=== PATIENT | female | born 1995 ===

== ENCOUNTER 2024-09-02 05:09 | Day surgery (SDC) | payer OTHER ==
[2024-08-25 09:07] VITALS: BP 101/68
[2024-08-25 09:18] LABS: HEMATOCRIT 32.7 % (36.0-45.00); MEAN CELL VOLUME 71.5 fL (80.00-100.00); MEAN CORPUSCULAR HEMOGLOBIN 22.9 pg (27.00-32.0); PLATELET COUNT 311 K/uL (150-450); RED BLOOD COUNT 4.57 M/uL (4.00-6.00); RED CELL DISTRIBUTION WIDTH 16.7 % (11.5-14.5)
[2024-08-25 09:19] LABS: HEMOGLOBIN 10.5 g/dL (12.0-15.00); URINE APPEARANCE Clear; URINE BILIRRUBIN Negative (NEGATIVE); URINE BLOOD Negative; URINE COLOR Yellow; URINE GLUCOSE Negative (NEGATIVE); URINE KETONE Negative (NEGATIVE); URINE LEUKOCYTE Negative; URINE NITRATE Negative; URINE PROTEIN Negative (NEGATIVE); URINE UROBILINOGEN 0.2 E.U./dl
[2024-08-25 09:24] LABS: URINE RBC 6.9 uL (0.0-20.8); URINE WBC 3.3 uL (0.0-23.2)
[2024-08-25 09:39] LABS: URINE CAST 0.29 uL (0.0-1.40)
[2024-08-25 09:41] LABS: INR 1.02; PARTIAL THROMBOPLASTIN TIME 28.2 SECONDS (22.0-34.0); PROTHROMBIN TIME 11.1 SECONDS (9.0-11.5)
[2024-08-25 10:31] LABS: BILIRUBIN TOTAL 0.34 mg/dL (0.3-1.2); CALCIUM 9.3 mg/dL (8.5-10.1); CREATININE SERUM 0.64 mg/dL (0.55-1.02); GFR 110.49; GLOBULINA 3.3 G/DL (2.4-3.5); POTASSIUM 4.65 mEq/L (3.5-5.1); TOTAL PROTEIN 7.3 gm/dL (6.4-8.2)
[~2024-09-02] VITALS: Ht 342.9 cm; Wt 69.9 kg
[2024-09-02] MEDS ORDERED: CEFAZOLIN SODIUM 1,000 MG VIAL ONE (07:02)
[2024-09-02] MEDS ORDERED: LIDOCAINE HCL 1%/EPINEPHRINE 20ML VIAL IJ ONE (07:06)
[2024-09-02] MEDS ORDERED: POVIDONE-IODINE 118 ML BOTT TOP ONE (07:06)
[2024-09-02] MEDS ORDERED: BUPIVACAINE HCL/Mpf 0.5% 10ML VIAL ONE (07:06)
[2024-09-02] MEDS ORDERED: ACETAMINOPHEN-1 EAC2 PO (09:02)
[2024-09-02] MEDS ORDERED: NAPROXEN500 MG PO (09:03)
[2024-09-02] MEDS ORDERED: MORPHINE SULFATE 4 MG/ML VIAL IV ONE (10:45)
== END 2024-09-02 12:05 | disposition home or self-care (01) ==
LOC: CIR.AMB 05:09
PROVIDERS: ATTEND Obstetrics & Gynecology
DX: N80.121 Deep endometriosis of right ovary (principal); N80.101 Endometriosis of right ovary, unspecified depth; N83.291 Other ovarian cyst, right side; R10.2 Pelvic and perineal pain